=== PATIENT | female | born 1935 | race Caucasian/White ===

== ENCOUNTER 2022-10-02 21:42 | Emergency (ER) | payer MEDICARE, BC, SELFPAY ==
[2022-10-02 21:32] VITALS: BP 119/80; PULSE 76
[2022-10-02 21:42] VITALS: BP 122/65; PULSE 74; RESP 13; TEMP 36.5; O2SAT 94; BMI 35.0
--- NOTE | 2022-10-02 22:03 | ED.GENADULT ---
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 Patient has her daughter at bedside does not want any treatment for DVTs or any management as patient on comfort care wanted to know whether patient has any UTI as a cause for the pain Related Data Allergies Allergy/AdvReac Type Severity Reaction Status Date / Time No Known Allergies Allergy Verified 10/02/22 21:47 Review of Systems Review of Systems: Yes all other systems are reviewed and are negative [facility] Past Medical History Medical History (Updated 10/03/22 @ 01:20 by Cassandra Bautista) Atrial fibrillation Comfort measures only status CVA (cerebral vascular accident) Decubitus ulcer Dementia DVT (deep venous thrombosis) Hypertension Hypothyroidism Ovarian cancer Social History Social History Alcohol intake: former Smoked in Last 30 Days: No Use of substances other than those prescribed or required for medical reasons: No Advance Directives: No Advance Directives Information Provided: Yes Physical Exam ED Vital Signs: Vital Signs - 24 hr 10/02/22 21:42 10/02/22 23:57 Temperature 97.7 F 97.7 F Pulse Rate 74 64 Respiratory Rate 13 12 Blood Pressure 122/65 127/55 L Pulse Oximetry 94 95 Oxygen Delivery Method Room Air Room Air BMI result Body Mass Index 35.0 Appearance: Alert. Oriented X2. No acute distress. Eyes: PERRLA, No Nystagmus ENT: Pharynx normal. Oral Mucosa moist Neck: Normal inspection. Neck supple. CVS: Normal heart rate and rhythm. Pulses normal. Respiratory: No respiratory distress. Equal air entry bilateral, no wheezing/rales/rhonchi Abdomen: Soft and nontender. Bowel sounds are present, no mass palpable, no CVA tenderness Skin: Skin warm and dry. Normal skin color. Normal skin turgor. Extremities: Bilateral lower leg edema right> left swelling no deformity , No calf tenderness Neuro: Oriented X 2. No motor deficit. 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 10/02/22 22:00 10/02/22 22:00 Labs: Lab Results 10/02/22 10/02/22 10/02/22 Range/Units 22:00 22:00 22:00 WBC 7.6 (4.8-10.8) X10*3/uL RBC 3.55 L (4.20-5.50) X10*6/uL Hgb 10.7 L (12.0-16.0) g/dl Hct 34.0 L (37.0-47.0) % MCV 95.8 (80.0-98.0) fL MCH 30.1 (27.0-33.0) pg MCHC 31.5 (31.0-35.0) g/dl RDW 15.3 (11.0-16.0) % Plt Count 252 (160-400) X10*3/uL MPV 9.7 (9.4-12.3) fL Immature Gran % (Auto) 0.3 (0.0-0.4) % Neut % (Auto) 71.4 (45-73) % Lymph % (Auto) 19.8 L (20-40) % [place] % (Auto) 5.9 (2-11) % Eos % (Auto) 2.1 (0-4) % Baso % (Auto) 0.5 (0-2) % Lymph # (Auto) 1.5 (1.2-4.9) X10*3/uL [place] # (Auto) 0.5 (0.1-1.2) X10*3/uL Eos # (Auto) 0.2 (0.0-0.4) X10*3/uL Baso # (Auto) 0.0 (0.0-0.2) X10*3/uL Abs Immat Gran (auto) 0.02 (0.00-0.03) X10*3/uL Absolute Neuts (auto) 5.5 (2.0-8.3) x10*3/uL Absolute Nucleated RBC 0.000 (0.0-0.012) X10*3/uL Nucleated RBC % (auto) 0.0 (0.0-0.2) /100WBC PT 14.8 H (10.0-13.1) SEC INR 1.3 H (0.9-1.1) APTT 34.5 (26.0-36.4) SEC Sodium 136 (135-145) mmol/L Potassium 3.9 (3.3-5.1) mmol/L Chloride 102 (96-108) mmol/L Carbon Dioxide 27 (22-29) mmol/L Anion Gap 11 L (12-20) BUN 10 (9-16) mg/dL Creatinine 0.59 (0.5-1.4) mg/dL Estim Creat Clear Calc 65.9 Estimated GFR > 60 Random Glucose 79 (60-115) mg/dL Fasting Glucose 79 (60-99) mg/dL Calcium 7.6 L (8.4-10.2) mg/dL Total Bilirubin 0.4 (0.0-1.0) mg/dL AST 22 (5-31) U/L ALT 5 (0-31) U/L Alkaline Phosphatase 128 H (39-117) U/L Troponin I High Sens (<3.5-17.0) ng/L Total Protein 6.1 L (6.5-8.0) g/dL Albumin 1.4 L (3.5-5.0) g/dL Urine Color Urine Appearance Urine pH (5.0-9.0) Ur Specific [place] (1.005-1.025) Urine Protein (Neg-Trace) mg/dL Urine Glucose (UA) (Negative) mg/dL Urine Ketones (Negative) mg/dL Urine Blood (Negative) Urine Nitrite (Negative) Ur Leukocyte Esterase (Negative) Urine RBC (0-2) /HPF Urine WBC (0-5) /HPF Ur Squamous Epith Cells (0-2) /HPF Urine Bacteria (None Seen) Hyaline Casts (0-2) /LPF 10/02/22 10/02/22 Range/Units 22:00 23:30 WBC (4.8-10.8) X10*3/uL RBC (4.20-5.50) X10*6/uL Hgb (12.0-16.0) g/dl Hct (37.0-47.0) % MCV (80.0-98.0) fL MCH (27.0-33.0) pg MCHC (31.0-35.0) g/dl RDW (11.0-16.0) % Plt Count (160-400) X10*3/uL MPV (9.4-12.3) fL Immature Gran % (Auto) (0.0-0.4) % Neut % (Auto) (45-73) % Lymph % (Auto) (20-40) % [place] % (Auto) (2-11) % Eos % (Auto) (0-4) % Baso % (Auto) (0-2) % Lymph # (Auto) (1.2-4.9) X10*3/uL [place] # (Auto) (0.1-1.2) X10*3/uL Eos # (Auto) (0.0-0.4) X10*3/uL Baso # (Auto) (0.0-0.2) X10*3/uL Abs Immat Gran (auto) (0.00-0.03) X10*3/uL Absolute Neuts (auto) (2.0-8.3) x10*3/uL Absolute Nucleated RBC (0.0-0.012) X10*3/uL Nucleated RBC % (auto) (0.0-0.2) /100WBC PT (10.0-13.1) SEC INR (0.9-1.1) APTT (26.0-36.4) SEC Sodium (135-145) mmol/L Potassium (3.3-5.1) mmol/L Chloride (96-108) mmol/L Carbon Dioxide (22-29) mmol/L Anion Gap (12-20) BUN (9-16) mg/dL Creatinine (0.5-1.4) mg/dL Estim Creat Clear Calc Estimated GFR Random Glucose (60-115) mg/dL Fasting Glucose (60-99) mg/dL Calcium (8.4-10.2) mg/dL Total Bilirubin (0.0-1.0) mg/dL AST (5-31) U/L ALT (0-31) U/L Alkaline Phosphatase (39-117) U/L Troponin I High Sens 5.8 (<3.5-17.0) ng/L Total Protein (6.5-8.0) g/dL Albumin (3.5-5.0) g/dL Urine Color Dark Yellow Urine Appearance Cloudy Urine pH 5.5 (5.0-9.0) Ur Specific [place] >= 1.030 H (1.005-1.025) Urine Protein Trace (Neg-Trace) mg/dL Urine Glucose (UA) Negative (Negative) mg/dL Urine Ketones Negative (Negative) mg/dL Urine Blood Negative (Negative) Urine Nitrite Negative (Negative) Ur Leukocyte Esterase Trace H (Negative) Urine RBC 0-2 (0-2) /HPF Urine WBC 0-5 (0-5) /HPF Ur Squamous Epith Cells 0-2 (0-2) /HPF Urine Bacteria None Seen (None Seen) Hyaline Casts 11-20 (0-2) /LPF Discharge Plan Discharge Clinical Impression: Leg pain, right Patient Disposition: Xfer SNF Transfer Details: BACK TO [facility] IN [place]., X-ray of the pelvis negative for fracture no UTI labs are stable Instructions: Leg Pain (ED) Additional Instructions: Comfort measures as needed
[2022-10-02 22:49] LABS: Alanine Aminotransferase 5 U/L (0-31); Albumin Level 1.4 g/dL (3.5-5.0); Alkaline Phosphatase 128 U/L (39-117); Anion Gap 11 (12-20); Aspartate Amino Transferase 22 U/L (5-31); Bilirubin Total 0.4 mg/dL (0.0-1.0); Blood Urea Nitrogen 10 mg/dL (9-16); Calcium 7.6 mg/dL (8.4-10.2); Carbon Dioxide 27 mmol/L (22-29); Chloride 102 mmol/L (96-108); Creatinine Clr Calc Pharmacy 65.9; Estimated Glomerular Filt Rate > 60; Glucose Fasting 79 mg/dL (60-99); Glucose Random 79 mg/dL (60-115); Potassium 3.9 mmol/L (3.3-5.1); Sodium 136 mmol/L (135-145); Total Protein 6.1 g/dL (6.5-8.0)
--- NOTE | 2022-10-02 23:30 | PC.NURSE ---
Pt straight cathed for urine per sterile technique and hospital policy. dark yellow urine noted. collected and sent to lab.
[2022-10-02 23:57] VITALS: BP 127/55; PULSE 64; RESP 12; TEMP 36.5; O2SAT 95
[2022-10-03 03:24] VITALS: BP 124/62; PULSE 76; RESP 18; TEMP 36.2; O2SAT 95
--- NOTE | 2022-10-03 07:30 | MHC.EDTECH ---
Donn with fredi called tiffanie/ nathaniel JAY. 8:15 new pickup.
--- NOTE | 2022-10-03 08:18 | PC.NURSE ---
Spoke to daughter Oksana, updated on EMS ETA for filler picker back to [place] is [id number]. Pt appears comfortable. Cleaned for incontinence and repositioned. Accepted crackers and juice. Denies pain. IV and registered nurse cardiac removed
[2022-10-03 08:24] VITALS: BP 126/58; PULSE 72; RESP 16; TEMP 36.2; O2SAT 92
--- NOTE | 2022-10-03 08:26 | PC.NURSE ---
Report given to Jordi Altamirano, spoke to Clary
== END 2022-10-03 08:46 | disposition skilled nursing facility (03) ==
PROVIDERS: Emergency Provider Internal Medicine; PCP Internal Medicine
DX: M79.604 Pain in right leg (principal); M25.551 Pain in right hip; R30.0 Dysuria; R07.89 Other chest pain; Z86.718 Personal history of other venous thrombosis and embolism; Z79.899 Other long term (current) drug therapy
CPT/HCPCS: 36415; 51702; 73502; 80053; 81001; 84484; 85025; 85610; 85730; 93005; 96374; 99284; J2270

== ENCOUNTER → 2022-10-02 21:53 | Outpatient (BNV) | payer MEDICARE, BC, SELFPAY | PROVIDERS: Emergency Provider Internal Medicine; PCP Internal Medicine; Visit Provider Internal Medicine Cardiovascular Disease | DX: R94.31 Abnormal electrocardiogram [ECG] [EKG] (principal) | CPT/HCPCS: 93010 ==